=== PATIENT | female | born 1945 | race Caucasian/White ===

== ENCOUNTER 2016-11-28 21:38 | Emergency (ER) | payer OTHER ==
[~2016-11-28] VITALS: Ht 165.1 cm; Wt 81.6 kg
[~2016-11-28 21:38] MED LIST: ASCO250T6 PO; ASPI-241 PO; CETI10CA PO; FLUO20CA36 PO; HYDR25TA4 PO; IBUP200C5 PO; LACT1CAP61 PO; LEVO50TA40 PO; SIMV40TA5 PO
--- NOTE | 2016-11-28 21:40 | NUR ---
NGUYEN FROM HOME DT "FEELING SICK", WEAKNESS WITH NAUSEA/ VOMITTING/DIARRHEA SINCE YESTERDAY. PATIENT IS AAO4. APPEARS IN MILD DISTRESS. SATING WELL ON ROOM AIR. TEMP 99.1. OTHER VSS
--- NOTE | 2016-11-28 21:50 | NUR ---
IV ACCESSED TO LAC 20. BLOOD SAMPLE SENT TO LAB
--- NOTE | 2016-11-28 21:51 | NUR ---
EKG ON PROGRESS
[2016-11-28 22:01] LABS: EOSINOPHILS % (AUTO) 0.1 % (0.0-6.0); HEMATOCRIT 42 % (33-45); HEMOGLOBIN 13.9 g/dL (11.5-14.8); LYMPHOCYTES # (AUTO) 0.9 /CMM (0.8-4.8); LYMPHOCYTES % (AUTO) 7.2 % (20.0-44.0); MEAN CORPUSCULAR HEMOGLOBIN 28 PG (26.0-33.0); MEAN CORPUSCULAR HGB CONC 33 g/dl (31.0-36.0); MEAN CORPUSCULAR VOLUME 85 fL (82-100); MONOCYTES # (AUTO) 0.3 /CMM (0.1-1.30); MONOCYTES % (AUTO) 2.3 % (2.0-12.0); NEUTROPHILS # (AUTO) 10.8 /CMM (1.8-8.9); NEUTROPHILS % (AUTO) 90.4 % (43.0-81.0); PLATELET COUNT (AUTO) 258 /CMM (150-450); RED BLOOD CELL COUNT(AUTO) 4.93 MIL/uL (4.0-5.2); WHITE BLOOD COUNT (AUTO) 11.9 K/uL (4.3-11.0)
--- NOTE | 2016-11-28 22:02 | NUR ---
DR. DAN AT BEDSIDE
--- NOTE | 2016-11-28 22:02 | NUR ---
PT UNABLE TO PROVIDE AT THIS TIME
[2016-11-28] MEDS ORDERED: ONDANSETRON HCL/PF 4 MG/2 ML VIAL ONE (22:03)
[2016-11-28 22:12] LABS: CALCIUM, SERUM 9.2 mg/dL (8.5-10.1); CARBON DIOXIDE 25 mmol/L (21-32); CHLORIDE 100 mmol/L (98-107); CREATININE 0.9 mg/dL (0.6-1.3); GLUCOSE 181 mg/dL (74-106); POTASSIUM 3.4 mmol/L (3.5-5.1); SODIUM SERUM 131 mmol/L (136-145); UREA NITROGEN, BLOOD 19 mg/dL (7-18)
[2016-11-28 22:18] LABS: ALANINE AMINOTRANSFERASE 35 U/L (12-78); ALBUMIN 3.9 g/dL (3.4-5.0); ALKALINE PHOSPHATASE 100 U/L (46-116); ASPARTATE AMINOTRANSFERASE 27 U/L (15-37); BILIRUBIN,DIRECT 0.1 mg/dL (0.0-0.2); BILIRUBIN,TOTAL 0.5 mg/dL (0.2-1.0); LIPASE 119 U/L (73-393); TOTAL PROTEIN, SERUM 7.7 g/dL (6.4-8.2)
[2016-11-28 22:20] LABS: TROPONIN I < 0.017 ng/mL (0.00-0.056)
[2016-11-28] MEDS ORDERED: ONDANSETRON HCL/PF 4 MG/2 ML VIAL IV ONE (22:30)
[2016-11-28] MEDS ORDERED: IV NS 0.9% 1,000 ML BAG IV ONE ×2 (22:30→23:00)
[2016-11-28] MEDS ORDERED: ACETAMINOPHEN ES 500 MG TABLET ONE (22:36)
--- NOTE | 2016-11-28 22:44 | NUR ---
CALLED [facility], I NOTIFIED THEM OF PATIENTS CC AND INITIAL VITAL SIGNS, WE WILL CALL BACK WITH ANY PLAN TO DISCHARGE OR TO ADMIT.
[2016-11-28] MEDS ORDERED: ACETAMINOPHEN 325 MG TABLET PO ONE (23:00)
--- NOTE | 2016-11-28 23:15 | NUR ---
Patient is resting comfortably in bed with eyes closed. Easily aroused. VSS
[2016-11-28] MEDS ORDERED: POTASSIUM CHLORIDE 20 MEQ TAB.PRT.SR PO ONE (23:41)
[2016-11-29] MEDS ORDERED: POTASSIUM CHLORIDE 20 MEQ TAB.PRT.SR PO ONE
[2016-11-29] MEDS ORDERED: IV NS 0.9% 1,000 ML BAG IV ONE
--- NOTE | 2016-11-29 00:32 | NUR ---
PATIENT PASSED PO CHALLENGE
[2016-11-29 01:29] VITALS: BP 145/79
--- NOTE | 2016-11-29 01:30 | NUR ---
Patient discharged to home in stable condition. Written and verbal after care instructions given. Patient verbalizes understanding of instruction.IV removed. Catheter intact and site benign. Pressure and 4x4 applied to site. No bleeding noted. PT ambulatory with a steady gait VITAL SIGNS WITHIN NORMAL LIMITS.
== END 2016-11-29 01:31 | disposition home or self-care (01) ==
LOC: ER 21:39
DX: K52.9 Noninfective gastroenteritis and colitis, unspecified (principal); E86.0 Dehydration; R11.2 Nausea with vomiting, unspecified; I10 Essential (primary) hypertension; F41.9 Anxiety disorder, unspecified; R19.7 Diarrhea, unspecified; Z85.841 Personal history of malignant neoplasm of brain; Z79.82 Long term (current) use of aspirin
CPT/HCPCS: 36415; 80048; 80076; 83605 ×2; 83690; 84484; 85025; 93005; 96360; 96361; 96374; 99285; A4606; J2405; J7030 ×2; Z7610

== ENCOUNTER 2018-08-05 12:59 | Emergency (ER) | payer OTHER, MEDICAID ==
[~2018-08-05] VITALS: Ht 162.6 cm; Wt 88.9 kg
[~2018-08-05 12:59] MED LIST changes: +ASCO250T23 PO; -ASCO250T6 PO; -ASPI-241 PO; +ASPI81TA49 PO; -LEVO50TA40 PO; +LEVO50TA66 PO
--- NOTE | 2018-08-05 13:02 | NUR ---
BIB [facility],WORSENING RIGHT SHOULDER PAIN X 10 DAYS,NO TRAUMA. TO ER BED 3, HOOKED TO MONITOR, CHANGED TO GOWN, PROVIDED W WARM BLANKET, AWAITING MD SARKAR.
--- NOTE | 2018-08-05 13:30 | NUR ---
DR LI AT BEDSIDE
--- NOTE | 2018-08-05 14:03 | NUR ---
CREDIT FRONT OFFICE DEVELOPER AT BEDSIDE
--- NOTE | 2018-08-05 14:18 | NUR ---
DR DUARTE AT BEDSIDE
[2018-08-05 14:35] LABS: BASOPHILS % (AUTO) 0.2 % (0.0-2.0); EOSINOPHILS % (AUTO) 0.6 % (0.0-6.0); HEMATOCRIT 35 % (33-45); HEMOGLOBIN 11.7 g/dL (11.5-14.8); LYMPHOCYTES # (AUTO) 2.1 /CMM (0.8-4.8); LYMPHOCYTES % (AUTO) 18.9 % (20.0-44.0); MEAN CORPUSCULAR HGB CONC 34 g/dl (31.0-36.0); MEAN CORPUSCULAR VOLUME 87 fL (82-100); MONOCYTES % (AUTO) 8.9 % (2.0-12.0); NEUTROPHILS # (AUTO) 7.8 /CMM (1.8-8.9); NEUTROPHILS % (AUTO) 71.4 % (43.0-81.0); PLATELET COUNT (AUTO) 238 /CMM (150-450); RED BLOOD CELL COUNT(AUTO) 3.98 MIL/uL (4.0-5.2); WHITE BLOOD COUNT (AUTO) 10.9 K/uL (4.3-11.0)
[2018-08-05 14:43] LABS: CARBON DIOXIDE 26 mmol/L (21-32); CHLORIDE 103 mmol/L (98-107); CREATININE 0.8 mg/dL (0.6-1.3); GLUCOSE 133 mg/dL (74-106); POTASSIUM 3.4 mmol/L (3.5-5.1); SODIUM SERUM 139 mmol/L (136-145); UREA NITROGEN, BLOOD 12 mg/dL (7-18)
[2018-08-05 14:49] LABS: ALANINE AMINOTRANSFERASE 20 U/L (12-78); ALKALINE PHOSPHATASE 79 U/L (46-116); ASPARTATE AMINOTRANSFERASE 16 U/L (15-37); BILIRUBIN,TOTAL 0.7 mg/dL (0.2-1.0); TOTAL PROTEIN, SERUM 6.7 g/dL (6.4-8.2)
--- NOTE | 2018-08-05 16:02 | NUR ---
Haydee amado in [facility] - 08/05/18 at 1627 by SARANYA Patient discharged to home in stable condition. Written and verbal after care instructions given. Patient verbalizes understanding of instruction.
[2018-08-05 16:03] VITALS: BP 102/60
--- NOTE | 2018-08-05 16:20 | NUR ---
Written and verbal after care instructions given. Patient verbalizes understanding of instruction.
--- NOTE | 2018-08-05 16:25 | NUR ---
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
== END 2018-08-05 16:27 | disposition home or self-care (01) ==
LOC: ER 13:01
DX: M25.511 Pain in right shoulder (principal); R10.84 Generalized abdominal pain; I10 Essential (primary) hypertension; F41.9 Anxiety disorder, unspecified; Z98.890 Other specified postprocedural states; Z90.89 Acquired absence of other organs; Z79.82 Long term (current) use of aspirin
CPT/HCPCS: 36415; 73030-TC; 80053-TC; 84484-TC; 85025-TC

== ENCOUNTER 2021-07-27 15:39 | Emergency (ER) | payer MEDICAID, OTHER ==
[~2021-07-27] VITALS: Ht 162.6 cm; Wt 85.7 kg
[~2021-07-27 15:39] MED LIST changes: +SIMV-49 PO; -SIMV40TA5 PO
--- NOTE | 2021-07-27 16:09 | NUR ---
RN NOTES initial contact, placed in bed 1, c/o lower back pain, made comfortable, awaiting any orders.
[2021-07-27] MEDS ORDERED: LIDOCAINE 5% (PATCH) 1 EA PATCH TP SCH (18:00)
[2021-07-27] MEDS ORDERED: GABA-532 PO (18:01)
[2021-07-27] MEDS ORDERED: MULT-1275 PO (18:01)
[2021-07-27] MEDS ORDERED: DICL100G34 TP (18:01)
[2021-07-27] MEDS ORDERED: BUSP30TA2 PO (18:01)
[2021-07-27] MEDS ORDERED: METF-440 PO (18:01)
[2021-07-27] MEDS ORDERED: ATEN50TA PO (18:01)
[2021-07-27] MEDS ORDERED: METF-442 PO (18:01)
[2021-07-27] MEDS ORDERED: HYDR25TA4 PO (18:01)
[2021-07-27] MEDS ORDERED: CIDE300T3 PO (18:01)
[2021-07-27] MEDS ORDERED: TROS60CA3 PO (18:01)
[2021-07-27] MEDS ORDERED: LAMO100T17 PO (18:01)
[2021-07-27 18:28] LABS: CALCIUM, SERUM 8.9 mg/dL (8.5-10.1); CARBON DIOXIDE 27 mmol/L (21-32); CHLORIDE 101 mmol/L (98-107); GLUCOSE 123 mg/dL (74-106); POTASSIUM 3.5 mmol/L (3.5-5.1); SODIUM SERUM 139 mmol/L (136-145); UREA NITROGEN, BLOOD 18 mg/dL (7-18)
[2021-07-27 18:34] LABS: ALANINE AMINOTRANSFERASE 22 U/L (12-78); ALBUMIN 3.4 g/dL (3.4-5.0); ALKALINE PHOSPHATASE 71 U/L (46-116); ASPARTATE AMINOTRANSFERASE 22 U/L (15-37); BILIRUBIN,DIRECT 0.1 mg/dL (0.0-0.2); BILIRUBIN,TOTAL 0.6 mg/dL (0.2-1.0); TOTAL PROTEIN, SERUM 7.1 g/dL (6.4-8.2)
--- NOTE | 2021-07-27 18:36 | NUR ---
URINE DRAWN FOR LAB AND SENT TO LAB FOR CULTURE RESULTS
[2021-07-27 19:03] LABS: BILIRUBIN,URINE NEGATIVE (NEGATIVE); COLOR,URINE YELLOW (YELLOW); LEUKOCYTE ESTERASE ,URINE NEGATIVE (NEGATIVE); NITRITE, URINE NEGATIVE (NEGATIVE); PROTEIN,URINE NEGATIVE (NEGATIVE); UGLUCOSE >=1000 mg/dL (NEGATIVE); UROBILINOGEN,URINE 0.2 EU/dL (0.2)
--- NOTE | 2021-07-27 19:11 | NUR ---
CT OF AB AND PELVIS COMPLETED
--- NOTE | 2021-07-27 19:31 | NUR ---
RECEIVED REPORT FROM JEAN DENISE FOR KERRY
[2021-07-27 19:33] LABS: BACTERIA,URINE Many /HPF (None Seen); SQUAMOUS EPITHELIAL CELL,UR Few /HPF (None Seen)
[2021-07-27 19:51] LABS: BASOPHILS % (AUTO) 0.1 % (0.0-2.0); EOSINOPHILS % (AUTO) 0.1 % (0.0-6.0); HEMATOCRIT 35 % (33-45); HEMOGLOBIN 11.9 g/dL (11.5-14.8); LYMPHOCYTES # (AUTO) 1.3 K/uL (0.8-4.8); LYMPHOCYTES % (AUTO) 11.6 % (20.0-44.0); MEAN CORPUSCULAR HGB CONC 34 g/dl (31.0-36.0); MEAN CORPUSCULAR VOLUME 86 fL (82-100); MONOCYTES # (AUTO) 0.7 K/uL (0.1-1.30); MONOCYTES % (AUTO) 6.4 % (2.0-12.0); NEUTROPHILS # (AUTO) 9.1 K/uL (1.8-8.9); NEUTROPHILS % (AUTO) 81.8 % (43.0-81.0); PLATELET COUNT (AUTO) 194 K/uL (150-450); RED BLOOD CELL COUNT(AUTO) 4.13 MIL/uL (4.0-5.2); WHITE BLOOD COUNT (AUTO) 11.1 K/uL (4.3-11.0)
--- NOTE | 2021-07-27 19:55 | NUR ---
PT RESTING COMFORTABLY IN BED, PROVIDED WARM BLANKET. DENIES ANY PAIN AT THIS TIME. WILL CONTINUE TO MONITOR.
[2021-07-27] MEDS ORDERED: CEFD300C3 PO (20:27)
[2021-07-27] MEDS ORDERED: IV NS 0.9% 1,000 ML IV ONE (20:30)
[2021-07-27] MEDS ORDERED: KETOROLAC TROMETHAMINE INJ 30 MG/ML VIAL IV ONE (20:30)
[2021-07-27] MEDS ORDERED: CEFTRIAXONE 1GM BAG (ER ONLY) 1 GM/50 ML PIGGYBACK IV ONE (20:30)
[2021-07-27] MEDS ORDERED: CEFTRIAXONE 1GM BAG (ER ONLY) 50 ML IV ONE (20:31)
[2021-07-27] MEDS ORDERED: KETOROLAC TROMETHAMINE 15 MG/ML VIAL ONE (20:32)
--- NOTE | 2021-07-27 21:47 | NUR ---
[facility] ETA 15-20 MINUTES.
--- NOTE | 2021-07-27 22:13 | NUR ---
GAVE REPORT TO [facility] FOR TRANSPORTATION
[2021-07-27 22:41] VITALS: BP 149/66
== END 2021-07-27 22:42 | disposition home or self-care (01) ==
LOC: ER 15:58
DX: N20.0 Calculus of kidney (principal); N39.0 Urinary tract infection, site not specified; R10.9 Unspecified abdominal pain; I10 Essential (primary) hypertension; F41.9 Anxiety disorder, unspecified; Z86.69 Personal history of other diseases of the nervous system and sense organs; Z87.19 Personal history of other diseases of the digestive system; Z90.89 Acquired absence of other organs; Z79.899 Other long term (current) drug therapy
CPT/HCPCS: 36415; 74176; 80048; 80076; 81001; 85025; 87077; 87086; 87186; 96365; 96375; 99284; J0696; J1885

== ENCOUNTER → 2021-12-29 | Emergency (ER) | payer OTHER ==
[~2021-12-29] VITALS: Ht 162.6 cm; Wt 90.7 kg
[~2021-12-29] MED LIST changes: -ASCO250T23 PO; -ASPI81TA49 PO; +ATEN50TA PO; +BUSP30TA2 PO; +CEFD300C3 PO; -CETI10CA PO; +CIDE300T3 PO; +DICL100G34 TP; -FLUO20CA36 PO; +GABA-532 PO; -IBUP200C5 PO; +KETOROLAC TROMETHAMINE 15 MG/ML VIAL ONE; +KETOROLAC TROMETHAMINE INJ 30 MG/ML VIAL IM ONE; -LACT1CAP61 PO; +LAMO100T17 PO; +METF-440 PO; +METF-442 PO; +MULT-1275 PO; +NAPR-1009 PO; +TROS60CA3 PO
--- NOTE | 2021-12-29 13:49 | NUR ---
back pain, [facility] to ER.
--- NOTE | 2021-12-29 15:00 | NUR ---
ABDOMINAL BINDER PLACED
--- NOTE | 2021-12-29 15:01 | NUR ---
[facility] CALLED FOR DR SHEPHERD
--- NOTE | 2021-12-29 15:15 | NUR ---
WALKER PROVIDED , GAIT TEACHING DONE
[2021-12-29 15:30] VITALS: BP 150/81
--- NOTE | 2021-12-29 15:30 | NUR ---
Patient discharged to home in stable condition. Written and verbal after care instructions given. Patient verbalizes understanding of instruction.
== END | disposition home or self-care (01) ==
LOC: ER 13:25
DX: M54.50 Low back pain, unspecified (principal); I10 Essential (primary) hypertension; E78.5 Hyperlipidemia, unspecified; E11.9 Type 2 diabetes mellitus without complications; M19.90 Unspecified osteoarthritis, unspecified site; G89.29 Other chronic pain; Z79.899 Other long term (current) drug therapy
CPT/HCPCS: 99283; 96372; J1885

== ENCOUNTER 2022-11-03 18:45 | Emergency (ER) | payer OTHER ==
[~2022-11-03] VITALS: Ht 162.6 cm; Wt 88.5 kg
[~2022-11-03 18:45] MED LIST changes: -KETOROLAC TROMETHAMINE 15 MG/ML VIAL ONE; -KETOROLAC TROMETHAMINE INJ 30 MG/ML VIAL IM ONE
[2022-11-03] MEDS ORDERED: IV NS 0.9% 1,000 ML BAG IV ONE (19:00)
[2022-11-03] MEDS ORDERED: ONDANSETRON HCL/PF 4 MG/2 ML VIAL IVP ONE (19:00)
[2022-11-03] MEDS ORDERED: ONDANSETRON HCL/PF 4 MG/2 ML VIAL ONE (19:11)
[2022-11-03] MEDS ORDERED: MECLIZINE HCL 12.5 MG TABLET PO ONE (20:00)
[2022-11-03 20:02] LABS: BASOPHILS % (AUTO) 0.4 % (0.0-2.0); EOSINOPHILS # (AUTO) 0.1 K/uL (0.0-0.7); EOSINOPHILS % (AUTO) 1.1 % (0.0-6.0); HEMATOCRIT 36 % (33-45); HEMOGLOBIN 11.9 g/dL (11.5-14.8); LYMPHOCYTES # (AUTO) 2.6 K/uL (0.8-4.8); LYMPHOCYTES % (AUTO) 38.3 % (20.0-44.0); MEAN CORPUSCULAR HEMOGLOBIN 29 PG (26.0-33.0); MEAN CORPUSCULAR HGB CONC 33 g/dl (31.0-36.0); MEAN CORPUSCULAR VOLUME 86 fL (82-100); MONOCYTES # (AUTO) 0.7 K/uL (0.1-1.30); MONOCYTES % (AUTO) 9.8 % (2.0-12.0); NEUTROPHILS # (AUTO) 3.4 K/uL (1.8-8.9); NEUTROPHILS % (AUTO) 50.4 % (43.0-81.0); PLATELET COUNT (AUTO) 266 K/uL (150-450); RED BLOOD CELL COUNT(AUTO) 4.19 MIL/uL (4.0-5.2); WHITE BLOOD COUNT (AUTO) 6.7 K/uL (4.3-11.0)
[2022-11-03] MEDS ORDERED: MECLIZINE HCL 25 MG TABLET ONE (20:03)
[2022-11-03 20:09] LABS: INR 0.95 (0.91-1.10); PARTIAL THROMBOPLASTIN TIME 25.4 SEC (24.3-34.3)
[2022-11-03 20:20] LABS: ALANINE AMINOTRANSFERASE 29 U/L (12-78); ALBUMIN 3.8 g/dL (3.4-5.0); ALKALINE PHOSPHATASE 97 U/L (46-116); ASPARTATE AMINOTRANSFERASE 17 U/L (15-37); BILIRUBIN,DIRECT 0.1 mg/dL (0.0-0.2); BILIRUBIN,TOTAL 0.2 mg/dL (0.2-1.0); CALCIUM, SERUM 9.4 mg/dL (8.5-10.1); CARBON DIOXIDE 31 mmol/L (21-32); CHLORIDE 103 mmol/L (98-107); CREATININE 1.2 mg/dL (0.6-1.3); GLUCOSE 157 mg/dL (74-106); POTASSIUM 3.5 mmol/L (3.5-5.1); SODIUM SERUM 139 mmol/L (136-145); TOTAL PROTEIN, SERUM 7.6 g/dL (6.4-8.2); UREA NITROGEN, BLOOD 30 mg/dL (7-18)
[2022-11-03] MEDS ORDERED: MECL-159 PO (21:02)
[2022-11-03 21:22] LABS: APPEARANCE,URINE CLEAR (CLEAR); BILIRUBIN,URINE NEGATIVE (NEGATIVE); BLOOD, URINE NEGATIVE Ery/uL (NEGATIVE); COLOR,URINE YELLOW (YELLOW); KETONES,URINE NEGATIVE (NEGATIVE); LEUKOCYTE ESTERASE ,URINE NEGATIVE (NEGATIVE); NITRITE, URINE POSITIVE (NEGATIVE); PROTEIN,URINE NEGATIVE (NEGATIVE); UGLUCOSE NEGATIVE (NEGATIVE); UROBILINOGEN,URINE 0.2 EU/dL (0.2)
[2022-11-03 21:26] VITALS: BP 125/75; TEMP 98.3; O2SAT 97
[2022-11-03 21:39] LABS: ADD URINE CULTURE YES; BACTERIA,URINE 3+ /HPF (None Seen); RBC,URINE NONE SEEN /HPF (0-2); SQUAMOUS EPITHELIAL CELL,UR 0-2 /HPF (None Seen)
== END 2022-11-03 21:24 | disposition home or self-care (01) ==
LOC: ER 18:51
DX: R42 Dizziness and giddiness (principal); I10 Essential (primary) hypertension; E78.5 Hyperlipidemia, unspecified; E11.9 Type 2 diabetes mellitus without complications; Z98.890 Other specified postprocedural states; Z79.899 Other long term (current) drug therapy; Z79.84 Long term (current) use of oral hypoglycemic drugs; Z88.2 Allergy status to sulfonamides; Z88.1 Allergy status to other antibiotic agents
CPT/HCPCS: 99285; 96374; 70450; 71045; 96361; 93005; 85025; 80048; 87086; 80076; 81001; 36415; 84484; 85730; J8597; J2405; J7030

== ENCOUNTER 2023-05-21 16:34 | Emergency (ER) | payer OTHER ==
[~2023-05-21] VITALS: Ht 162.6 cm; Wt 88.9 kg
[~2023-05-21 16:34] MED LIST changes: +MECL-159 PO
[2023-05-21] MEDS ORDERED: MECLIZINE HCL 25 MG TABLET ONE (18:18)
[2023-05-21] MEDS: MECLIZINE HCL 12.5 MG TABLET PO ONE (18:37)
[2023-05-21] MEDS: IV NS 0.9% 1,000 ML BAG IV ONE (18:37)
[2023-05-21 18:55] LABS: CALCIUM, SERUM 9.8 mg/dL (8.5-10.1); POTASSIUM 3.4 mmol/L (3.5-5.1)
[2023-05-21 19:07] LABS: CHOLESTEROL 204 mg/dL (<200); HDL CHOLESTEROL 55 mg/dL (40-60); LDL 91 mg/dL (0-99); TRIGLYCERIDES 367 mg/dL (30-150)
[2023-05-21 19:43] LABS: BASOPHILS % (AUTO) 0.1 % (0.0-2.0); EOSINOPHILS # (AUTO) 0.1 K/uL (0.0-0.7); EOSINOPHILS % (AUTO) 1.2 % (0.0-6.0); HEMATOCRIT 34 % (33-45); HEMOGLOBIN 11.5 g/dL (11.5-14.8); LYMPHOCYTES % (AUTO) 35.9 % (20.0-44.0); MEAN CORPUSCULAR HEMOGLOBIN 29 PG (26.0-33.0); MEAN CORPUSCULAR HGB CONC 34 g/dl (31.0-36.0); MEAN CORPUSCULAR VOLUME 86 fL (82-100); MONOCYTES # (AUTO) 0.6 K/uL (0.1-1.30); MONOCYTES % (AUTO) 6.7 % (2.0-12.0); NEUTROPHILS # (AUTO) 4.7 K/uL (1.8-8.9); NEUTROPHILS % (AUTO) 56.1 % (43.0-81.0); PLATELET COUNT (AUTO) 252 K/uL (150-450); RED BLOOD CELL COUNT(AUTO) 3.92 MIL/uL (4.0-5.2); RED CELL DISTRIBUTION WIDTH 13.6 % (11.5-15.0); WHITE BLOOD COUNT (AUTO) 8.3 K/uL (4.3-11.0)
[2023-05-21] MEDS ORDERED: MECL-159 PO (20:06)
[2023-05-21 22:23] VITALS: BP 130/74; TEMP 97.9; O2SAT 98
== END 2023-05-21 22:24 | disposition home or self-care (01) ==
LOC: ER 16:54
DX: R42 Dizziness and giddiness (principal); E78.1 Pure hyperglyceridemia; I10 Essential (primary) hypertension; E78.5 Hyperlipidemia, unspecified; E11.9 Type 2 diabetes mellitus without complications; M19.90 Unspecified osteoarthritis, unspecified site; Z88.2 Allergy status to sulfonamides; Z88.8 Allergy status to other drugs, medicaments and biological substances; Z79.84 Long term (current) use of oral hypoglycemic drugs; Z79.899 Other long term (current) drug therapy
CPT/HCPCS: 99284; 96360; 70450; 80061; 85025; 80048; 83036; 36415; J8597; J7030

== ENCOUNTER 2023-09-29 02:26 | Emergency (ER) | payer OTHER ==
[~2023-09-29] VITALS: Ht 162.6 cm; Wt 88.5 kg
[2023-09-29] MEDS: ONDANSETRON HCL/PF 4 MG/2 ML VIAL IV ONE (03:00)
[2023-09-29 03:04] LABS: BASOPHILS % (AUTO) 0.3 % (0.0-2.0); HEMATOCRIT 38 % (33-45); HEMOGLOBIN 12.6 g/dL (11.5-14.8); LYMPHOCYTES # (AUTO) 1.4 K/uL (0.8-4.8); LYMPHOCYTES % (AUTO) 8.5 % (20.0-44.0); MEAN CORPUSCULAR HEMOGLOBIN 28 PG (26.0-33.0); MEAN CORPUSCULAR HGB CONC 33 g/dl (31.0-36.0); MEAN CORPUSCULAR VOLUME 86 fL (82-100); MONOCYTES # (AUTO) 1.1 K/uL (0.1-1.30); MONOCYTES % (AUTO) 6.7 % (2.0-12.0); NEUTROPHILS # (AUTO) 14.4 K/uL (1.8-8.9); NEUTROPHILS % (AUTO) 84.5 % (43.0-81.0); PLATELET COUNT (AUTO) 233 K/uL (150-450); RED BLOOD CELL COUNT(AUTO) 4.46 MIL/uL (4.0-5.2); RED CELL DISTRIBUTION WIDTH 13.6 % (11.5-15.0); WHITE BLOOD COUNT (AUTO) 17.1 K/uL (4.3-11.0)
[2023-09-29] MEDS ORDERED: ONDANSETRON HCL/PF 4 MG/2 ML VIAL ONE (03:06)
[2023-09-29 03:12] LABS: CALCIUM, SERUM 9.6 mg/dL (8.5-10.1); CARBON DIOXIDE 28 mmol/L (21-32); CHLORIDE 101 mmol/L (98-107); CREATININE 1.3 mg/dL (0.6-1.3); GLUCOSE 165 mg/dL (74-106); POTASSIUM 3.9 mmol/L (3.5-5.1); SODIUM SERUM 141 mmol/L (136-145); UREA NITROGEN, BLOOD 25 mg/dL (7-18)
[2023-09-29 03:18] LABS: ALANINE AMINOTRANSFERASE 24 U/L (12-78); ALBUMIN 3.6 g/dL (3.4-5.0); ALKALINE PHOSPHATASE 107 U/L (46-116); ASPARTATE AMINOTRANSFERASE 17 U/L (15-37); BILIRUBIN,DIRECT 0.2 mg/dL (0.0-0.2); BILIRUBIN,TOTAL 0.6 mg/dL (0.2-1.0); TOTAL PROTEIN, SERUM 7.8 g/dL (6.4-8.2)
[2023-09-29 04:38] VITALS: TEMP 98.5
[2023-09-29] MEDS ORDERED: FUROSEMIDE 40 MG/4 ML VIAL ONE (04:43)
[2023-09-29] MEDS ORDERED: ATENOLOL 50 MG TABLET ONE (04:43)
[2023-09-29] MEDS: ATENOLOL 50 MG TABLET PO ONE (04:52)
[2023-09-29] MEDS: FUROSEMIDE 40 MG/4 ML VIAL IV ONE (04:52)
[2023-09-29] MEDS ORDERED: FURO-144 PO (05:49)
[2023-09-29] MEDS ORDERED: AZIT250T13 PO (05:49)
[2023-09-29] MEDS ORDERED: IOHEXOL-350 100 ML VIAL IV ONE (06:25)
[2023-09-29] MEDS ORDERED: IV NS 0.9% 500 ML IV ONE (06:26)
[2023-09-29] MEDS ORDERED: IV NS 0.9% 250 ML IV ONE (06:26)
[2023-09-29 08:37] VITALS: BP 111/61; O2SAT 99
== END 2023-09-29 08:37 | disposition home or self-care (01) ==
LOC: ER 02:39
DX: R06.02 Shortness of breath (principal); R60.0 Localized edema; I10 Essential (primary) hypertension; E78.5 Hyperlipidemia, unspecified; E11.9 Type 2 diabetes mellitus without complications; M19.90 Unspecified osteoarthritis, unspecified site; Z88.2 Allergy status to sulfonamides; Z88.8 Allergy status to other drugs, medicaments and biological substances
CPT/HCPCS: 99285; 96374; 71275; 71045; 96375; 93005; 85025; 80048; 80076; 85378; 36415; 84484 ×2; 83880; J1940; J2405; J7050; J7040; Q9967

== ENCOUNTER 2024-08-11 20:17 | Emergency (ER) | payer OTHER ==
[~2024-08-11] VITALS: Ht 165.1 cm; Wt 77.1 kg
[~2024-08-11 20:17] MED LIST changes: +AZIT250T13 PO; +FURO-144 PO
[2024-08-11] MEDS ORDERED: ONDANSETRON HCL/PF 4 MG/2 ML VIAL ONE (21:04)
[2024-08-11] MEDS ORDERED: MECLIZINE HCL 25 MG TABLET ONE (21:04)
[2024-08-11] MEDS: ONDANSETRON HCL/PF - ER 4 MG/2 ML VIAL IV ONE (21:09)
[2024-08-11] MEDS: MECLIZINE HCL 12.5 MG TABLET PO ONE (21:09)
[2024-08-11] MEDS ORDERED: IV NS 0.9% 250 ML IV ONE (21:23)
[2024-08-11] MEDS ORDERED: IOHEXOL-300 100 ML VIAL IV ONE (21:23)
[2024-08-11 21:26] LABS: LACTIC ACID 0.7 mmol/L (0.4-2.0)
[2024-08-11 21:36] LABS: ALANINE AMINOTRANSFERASE 16 U/L (12-78); ALBUMIN 3.2 g/dL (3.4-5.0); ALKALINE PHOSPHATASE 97 U/L (46-116); ASPARTATE AMINOTRANSFERASE 12 U/L (15-37); BILIRUBIN,DIRECT 0.2 mg/dL (0.0-0.2); BILIRUBIN,TOTAL 0.8 mg/dL (0.2-1.0); CARBON DIOXIDE 28 mmol/L (21-32); CREATININE 1.1 mg/dL (0.6-1.3); GLUCOSE 143 mg/dL (74-106); TOTAL PROTEIN, SERUM 6.8 g/dL (6.4-8.2); UREA NITROGEN, BLOOD 24 mg/dL (7-18)
[2024-08-11 21:42] LABS: CHLORIDE 106 mmol/L (98-107); POTASSIUM 4.1 mmol/L (3.5-5.1); SODIUM SERUM 144 mmol/L (136-145)
[2024-08-11 21:50] LABS: BASOPHILS % (AUTO) 0.2 % (0.0-2.0); EOSINOPHILS % (AUTO) 0.2 % (0.0-6.0); HEMATOCRIT 34 % (33-45); HEMOGLOBIN 11.2 g/dL (11.5-14.8); LYMPHOCYTES # (AUTO) 2.2 K/uL (0.8-4.8); LYMPHOCYTES % (AUTO) 18.3 % (20.0-44.0); MEAN CORPUSCULAR HEMOGLOBIN 28 PG (26.0-33.0); MEAN CORPUSCULAR HGB CONC 33 g/dl (31.0-36.0); MEAN CORPUSCULAR VOLUME 85 fL (82-100); MONOCYTES # (AUTO) 0.9 K/uL (0.1-1.30); MONOCYTES % (AUTO) 7.6 % (2.0-12.0); NEUTROPHILS # (AUTO) 8.7 K/uL (1.8-8.9); NEUTROPHILS % (AUTO) 73.7 % (43.0-81.0); PLATELET COUNT (AUTO) 292 K/uL (150-450); RED BLOOD CELL COUNT(AUTO) 4.04 MIL/uL (4.0-5.2); RED CELL DISTRIBUTION WIDTH 14.7 % (11.5-15.0); WHITE BLOOD COUNT (AUTO) 11.8 K/uL (4.3-11.0)
[2024-08-11] MEDS ORDERED: MECL-159 PO (22:16)
[2024-08-11] MEDS ORDERED: ONDA4TAB5 PO (22:16)
[2024-08-11] MEDS ORDERED: AMOX-430 PO (23:14)
[2024-08-11 23:27] VITALS: BP 131/70; TEMP 98; O2SAT 98
== END 2024-08-11 23:28 | disposition home or self-care (01) ==
LOC: ER 20:22
DX: R42 Dizziness and giddiness (principal); R11.2 Nausea with vomiting, unspecified; R10.30 Lower abdominal pain, unspecified; I10 Essential (primary) hypertension; E78.5 Hyperlipidemia, unspecified; E11.9 Type 2 diabetes mellitus without complications; M19.90 Unspecified osteoarthritis, unspecified site; Z79.84 Long term (current) use of oral hypoglycemic drugs; Z79.899 Other long term (current) drug therapy; Z88.1 Allergy status to other antibiotic agents; Z88.2 Allergy status to sulfonamides; Z98.890 Other specified postprocedural states; Z88.8 Allergy status to other drugs, medicaments and biological substances
CPT/HCPCS: 99285; 70450; 96374; 71045; 93005; 74177; 85025; 80048; 87040 ×2; 83605; 80076; 36415; 84484; J8597; J2405 ×2; J7050; Q9967